=== PATIENT | male | born 1950 | race Hispanic/Latino ===

== ENCOUNTER → 2018-12-16 | Outpatient (CLI) | payer OTHER ==
[~2018-12-16] MED LIST: IOPAMIDOL 370 MG/ML 200 ML INFUS..BTL INJ ONE; LEVAQUIN500 MG PO; NORCO 7.5-3251 EACH PO; PANTOPRAZOLE SO40 MG PO; SODIUM CHLORIDE 0.9% 50ML 50 ML ONE
[2018-12-16 14:41] LABS: BLOOD UREA NITROGEN 10 mg/dL (7-26); BUN/CREATININE RATIO 13 (6-25); CREATININE, SERUM 0.76 mg/dL (0.72-1.25); EST GLOMERULAR FILTRATION RATE > 60 ML/MIN (60-)
--- NOTE | 2018-12-16 16:14 | Diagnostic Imaging Report ---
CT of the abdomen and pelvis, with contrast, 12/16/2018. History: Epigastric abdominal pain. Comparison: Ultrasound 12/20/2014. Technique: Multidetector CT scanning of the abdomen and pelvis was performed from the level of the lung bases to the inferior pubic rami after intravenous administration of contrast. No oral contrast was administered. Coronal and sagittal multiplanar reformations were obtained. RADIATION DOSE: Total DLP: 367 mGy*cm Dose modulation, iterative reconstruction, and/or weight based adjustment of the mA/kV was utilized to reduce the radiation dose to as low as reasonably achievable. Discussion: LUNG BASES: Calcified pleural plaques are present at both lung bases with adjacent linear scarring. ABDOMEN: The liver, gallbladder, biliary tree, spleen, pancreas, adrenal glands, and kidneys are normal. The hepatic vein, portal vein, and splenic vein are patent. The abdominal aorta is within normal limits for size. Evaluation of bowel is limited without oral contrast. There is no bowel dilatation. The appendix is visualized and is normal. There is no evidence of adenopathy or free fluid. PELVIS: The bladder is unremarkable. The prostate is prominent measuring 5.3 cm in transverse diameter. There is no evidence of free fluid or adenopathy. BONES AND SOFT TISSUES: Degenerative changes are present throughout the lumbar spine without evidence of lytic or sclerotic lesion. IMPRESSION: 1. Calcified bilateral pleural plaques. 2. Prostatomegaly. Otherwise unremarkable CT of the abdomen and pelvis. No evidence of cholelithiasis, nephrolithiasis, appendicitis, or bowel obstruction. Signed by: Mor Christy on 12/16/2018 4:11 PM
== END ==
LOC: CT 13:30
PROVIDERS: ATTEND Internal Medicine Gastroenterology
DX: R10.13 Epigastric pain (principal); R12 Heartburn
CPT/HCPCS: 36415; 74177; 82565; 84520; Q9967

== ENCOUNTER 2020-12-30 11:02 | Emergency (ER) | payer MEDICARE, OTHER ==
[~2020-12-30] VITALS: Ht 167.6 cm; Wt 78.0 kg
[~2020-12-30 11:02] MED LIST changes: -IOPAMIDOL 370 MG/ML 200 ML INFUS..BTL INJ ONE; -SODIUM CHLORIDE 0.9% 50ML 50 ML ONE
[2020-12-30] MEDS ORDERED: CASIRIVIMAB/IMDEVIMAB 10 ML VIAL IV ONE (11:15)
[2020-12-30] MEDS ORDERED: CASIRIVIMAB/IMDEVIMAB 600 ML in SODIUM CHLORIDE 0.9% 100 ML IV ONE (11:45)
[2020-12-30 12:51] VITALS: BP 136/62
== END 2020-12-30 12:26 | disposition home or self-care (01) ==
LOC: ER 11:07
DX: R05 Cough (principal); R06.02 Shortness of breath; U07.1 COVID-19
CPT/HCPCS: 99283